=== PATIENT | female | born 1940 | race Caucasian/White ===

== ENCOUNTER 2021-04-18 08:20 | Observation (INO) ==
--- NOTE | 2020-11-17 14:02 | PAT Medication Instructions ---
Medication Instructions Date of Service November 17, 2020 Home Medications acetaminophen 500 mg tablet 500 mg PO Q6H PRN alprazolam 0.25 mg tablet 0.25 mg PO TID PRN meclizine 25 mg tablet 25 mg PO Q6H PRN olmesartan 20 mg tablet 20 mg PO HS omeprazole 20 mg capsule,delayed release 20 mg PO BID paroxetine HCl 40 mg tablet 40 mg PO HS simvastatin 20 mg tablet 20 mg PO HS vitamins A,C,N-yeyi-fymwxk 14,320 unit-226 mg-200 unit capsule (PreserVision AREDS) 1 cap PO BID STOP taking 2 weeks before surgery vitamins A,C,P-lzbn-vlznpy 14,320 unit-226 mg-200 unit capsule (PreserVision AREDS) 1 cap PO BID Take morning of surgery With a small sip of water, OTHERWISE NOTHING TO EAT OR DRINK AFTER MIDNIGHT: acetaminophen 500 mg tablet 500 mg PO Q6H PRN (okay to take up to 4 hours prior to surgery if needed) alprazolam 0.25 mg tablet 0.25 mg PO TID PRN (if needed) meclizine 25 mg tablet 25 mg PO Q6H PRN (if needed) omeprazole 20 mg capsule,delayed release 20 mg PO BID Take evening before surgery acetaminophen 500 mg tablet 500 mg PO Q6H PRN (if needed) alprazolam 0.25 mg tablet 0.25 mg PO TID PRN (if needed) meclizine 25 mg tablet 25 mg PO Q6H PRN (if needed) olmesartan 20 mg tablet 20 mg PO HS omeprazole 20 mg capsule,delayed release 20 mg PO BID paroxetine HCl 40 mg tablet 40 mg PO HS simvastatin 20 mg tablet 20 mg PO HS Other Notes If you have any questions please call us at [phone] or [phone] or [phone] or [phone]
--- NOTE | 2020-11-23 15:56 | Anesthesiology Consultation ---
Date of Service November 23, 2020 Assessment & Plan (1) Encounter for pre-operative examination: Chart Review Chart Review: Acceptable Risk for Surgery (pending surgeon ordered PCP clearance, pulm note if available and preop Covid testing results ) and Patient seen in Pre Admission Testing - Awaiting surgeon ordered PCP clearance - Per patient's daughter- patient also seeing pulm prior to surgery- will attempt to get office note Per PAT appt on 11/23/20, patient denies any recent travel or large group activities. No known Covid positive contacts or Covid related symptoms. No known Covid infection in the past 90 days. Pt vaccinated for surgery. Preop Covid testing scheduled 12/16/20= will await results. Educated on importance of self quarantining, social distancing and wearing mask in public for the patient one week prior to surgery and after Covid testing done Teaching & Discussion Pre-Anesthesia Teaching/Discussion Notes: Instructed NPO after midnight before surgery,except medications with 15 cc of water. Medication instructions provided according to the PAT guidelines. History Surgery Operation Date: 12/20/20 07:00 Proposed Procedures p Left Total Knee Arthroplasty - Jason Kong MD Height/Weight Height: 5 ft 1 in Weight: 79.9 kg Allergies Allergy/AdvReac Type Severity Reaction Status Date / Time diazepam [From Valium] AdvReac Intermediate Confusion Verified 11/23/20 16:09 Medications Home Medications Medication Instructions Recorded Confirmed Last Taken acetaminophen 500 mg tablet 500 mg PO Q6H PRN 11/17/20 11/17/20 Unknown alprazolam 0.25 mg tablet 0.25 mg PO TID PRN 11/17/20 11/17/20 Unknown meclizine 25 mg tablet 25 mg PO Q6H PRN 11/17/20 11/17/20 Unknown olmesartan 20 mg tablet 20 mg PO HS 11/17/20 11/17/20 Unknown omeprazole 20 mg capsule,delayed 20 mg PO BID 11/17/20 11/17/20 Unknown release paroxetine HCl 40 mg tablet 40 mg PO HS 11/17/20 11/17/20 Unknown simvastatin 20 mg tablet 20 mg PO HS 11/17/20 11/17/20 Unknown vitamins A,C,V-byxa-hhmcnh 14,320 1 cap PO BID 11/17/20 11/17/20 Unknown unit-226 mg-200 unit capsule (PreserVision AREDS) Past Medical History Medical History (Updated 11/23/20 @ 16:43 by Carrie Wright PA-C) Anxiety Depression Dysphagia Occ with certain food - rice and hamburger Hx of esophageal dilation - secondary to stricture vs schatzki ring GERD (gastroesophageal reflux disease) Well controlled and stable with medication Hiatal hernia Hyperlipidemia Hypertension SOB (shortness of breath) on exertion Family feels deconditioned - PCP will be scheduling patient with [employer]orer stores Stress bladder incontinence, female Exercise / Class Metabolic Activity III < 4 Walking/Shop/Light housework (one flight of stairs - no chest pain, mild SOB ) Past Family History Family History Son Family history of diabetes mellitus Brother Family hx of colon cancer Brother Family hx of colon cancer Sister Family hx of colon cancer Past Surgical History Surgical History H/O bilateral oophorectomy WITH REMOVAL ADHESIONS History of arthroscopy LEFT KNEE History of cataract surgery R/L History of colonoscopy History of esophagogastroduodenoscopy (EGD) MULTIPLE History of hysterectomy Past Anesthesia History No Hx of Anesthesia Complications (with exception to slow to wake - groggy- no reintubation or ICU stay ) and No Family Hx of Anesthesia Complications History of PONV No Hx of PONV, No Hx of Motion Sickness and Other (One episode of vertigo with ovarian cystectomy/adhesion removal surgery- 2016- prolonged surgery ) Social History Smoking Status: Never smoker Do You Dip or Chew Tobacco: No Hx Alcohol Use: No Hx Substance Use: No Review of Systems Hx of snoring - hx of sleep study 20-25 years ago- no TRUNG - no recent sleep studies Patient denies chest pain, shortness of breath at rest, cough, wheezing, palpitations. No hx of seizures, stroke, NV. No hx of blood clots or blood transfusions Physical Exam Vital Signs VITALS BP 125/83 P 89 TEMP 98.0 SP02 96% RESP 16 Constitutional no acute distress ENMT Mouth: no TMJ clicking Thyromental Distance: > or= 3.5 Finger Breadths Mallampati Class: II Neck neck extension not limited Respiratory normal respiratory effort; no respiratory distress Auscultation: lungs clear to auscultation bilaterally; no crackles, no rales, no rhonchi and no wheezes Cardiovascular Rate/Rhythm: regular rate and regular rhythm Heart Sounds: no murmur Vessels: no carotid bruit Musculoskeletal Spine: no pain with cervical ROM Extremities: extremities normal to inspection Psychiatric Orientation: alert Lab Results Anesthesia Preop Results Results Anesthesia Widget: WBC 10.46 K/uL (4.8-10.8) 11/23/20 Hgb 13.8 g/dL (12.0-16.0) 11/23/20 Hct 43.0 % (37-47) 11/23/20 Plt 289 K/uL (130-400) 11/23/20 Na 142 mmol/L (136-145) 11/23/20 K 4.3 mmol/L (3.5-5.1) 11/23/20 Cl 107 mmol/L (98-107) 11/23/20 CO2 29 mmol/L (21-32) 11/23/20 BUN 20 mg/dl (7-18) H 11/23/20 Creat 1.09 mg/dl (0.6-1.2) 11/23/20 Glucose Level 83 mg/dl (70-99) 11/23/20 PT 10.3 Seconds (9.0-12.0) 11/23/20 PTT 25.9 Seconds (21.0-31.0) 11/23/20 INR 1.0 (0.9-1.1) 11/23/20 Blood Type A Positive 11/23/20 Antibody Screen NEGATIVE 11/23/20 Testing Electrocardiogram Date: 11/23/20 Findings: + NSR @ (82bpm) Nonspecific ST abnormality Chest X-Ray Date: 11/23/20 Findings: + NAD The heart is top normal for projection noting atherosclerotic calcification of the thoracic aorta. There is elevation of the right hemidiaphragm with bibasilar scarring/atelectasis. No airspace consolidation or pleural effusion is identified. There is no pneumothorax.
--- NOTE | 2021-03-21 11:22 | PAT Medication Instructions ---
Medication Instructions Date of Service March 21, 2021 Home Medications acetaminophen 500 mg tablet 500 mg PO Q6H PRN alprazolam 0.25 mg tablet 0.25 mg PO TID PRN meclizine 25 mg tablet 25 mg PO Q6H PRN olmesartan 20 mg tablet 20 mg PO HS omeprazole 20 mg capsule,delayed release 20 mg PO BID paroxetine HCl 40 mg tablet 40 mg PO HS simvastatin 20 mg tablet 20 mg PO HS vitamins A,C,N-ezrq-slhrre 14,320 unit-226 mg-200 unit capsule (PreserVision AREDS) 1 cap PO BID STOP taking 2 weeks before surgery vitamins A,C,E-apho-xxnlbw 14,320 unit-226 mg-200 unit capsule (PreserVision AREDS) 1 cap PO BID Take morning of surgery With a small sip of water, OTHERWISE NOTHING TO EAT OR DRINK AFTER MIDNIGHT: acetaminophen 500 mg tablet 500 mg PO Q6H PRN (okay to take up to 4 hours prior to surgery if needed) alprazolam 0.25 mg tablet 0.25 mg PO TID PRN (if needed) meclizine 25 mg tablet 25 mg PO Q6H PRN (if needed) omeprazole 20 mg capsule,delayed release 20 mg PO BID Take evening before surgery acetaminophen 500 mg tablet 500 mg PO Q6H PRN (if needed) alprazolam 0.25 mg tablet 0.25 mg PO TID PRN (if needed) meclizine 25 mg tablet 25 mg PO Q6H PRN (if needed) olmesartan 20 mg tablet 20 mg PO HS omeprazole 20 mg capsule,delayed release 20 mg PO BID paroxetine HCl 40 mg tablet 40 mg PO HS simvastatin 20 mg tablet 20 mg PO HS Other Notes If you have any questions please call us at [phone] or [phone] or [phone] or [phone]
--- NOTE | 2021-04-11 13:49 | Anesthesiology Consultation ---
Date of Service April 11, 2021 Assessment & Plan (1) Encounter for pre-operative examination: Chart Review Chart Review: Acceptable Risk for Surgery (pending preop Covid testing results ) and Patient NOT seen in Pre Admission Testing Pt seen in [facility] in 10/2020- rescheduled multiple times secondary to Covid surge- patient current scheduled 04/18/21 -Due to age and ROSALES- patient is NOT an acceptable [facility] candidate Per nursing assessment 03/17/2021, patient denies any recent travel. Wears mask in public. No known Covid infection in the past 90 days. Patient is fully vaccinated for Covid. No known Covid positive exposures or Covid related symptoms. Pt will need preop Covid testing 2-4 days prior to surgery= will await results Seen by pulmonology 12/27/20=patient presents for follow-up of hypoxemia. Patient has had swallowing study, PFTs, 6-minute walk test (reports scanned to chart). Patient did desat to 89% with activity on pulse oximetry.Patient's work-up revealed no underlying issues. Does have hiatal hernia and elevated hemidiaphragm.Will await sniff test results. "Patient has surgery scheduled 01/03/2021ulmonary feels she is fine. Oxygenation has improved. Cough is likely combination of things including postnasal drip, hiatal hernia, and some swallowing issues. She does have a Schatzki ring and needs to follow-up with GI. Follow-up in 1 month. Patient seen by PCP 12/05/2020= seen for preop evaluation prior to knee replacement. Patient with recent cough and SOB especially after eatingscheduled to see pulmonary prior to surgery. " To see pulmonary preop. Otherwise medically stable." PCP feels patient would do better with 2-week postop rehab stay. History Surgery Operation Date: 01/24/21 09:20 Proposed Procedures p Left Total Knee Arthroplasty - Jason Kong MD Operation Date: 04/04/21 07:00 Proposed Procedures p Left Total Knee Arthroplasty - Jason Kong MD Operation Date: 04/18/21 10:10 Proposed Procedures p Left Total Knee Arthroplasty - Jason Kong MD Height/Weight Height: 5 ft 1 in Weight: 77.111 kg Allergies Allergy/AdvReac Type Severity Reaction Status Date / Time diazepam [From Valium] AdvReac Intermediate Confusion Verified 03/17/21 10:55 Sulfa (Sulfonamide AdvReac Mild Hives Verified 03/17/21 10:55 Antibiotics) Medications Home Medications Medication Instructions Recorded Confirmed Last Taken acetaminophen 500 mg tablet 500 mg PO Q6H PRN 11/17/20 03/17/21 Unknown alprazolam 0.25 mg tablet 0.25 mg PO TID PRN 11/17/20 03/17/21 Unknown meclizine 25 mg tablet 25 mg PO Q6H PRN 11/17/20 03/17/21 Unknown olmesartan 20 mg tablet 20 mg PO HS 11/17/20 03/17/21 Unknown omeprazole 20 mg capsule,delayed 20 mg PO BID 11/17/20 03/17/21 Unknown release paroxetine HCl 40 mg tablet 40 mg PO HS 11/17/20 03/17/21 Unknown simvastatin 20 mg tablet 20 mg PO HS 11/17/20 03/17/21 Unknown vitamins A,C,B-ezpf-bgmpdk 14,320 1 cap PO BID 11/17/20 03/17/21 Unknown unit-226 mg-200 unit capsule (PreserVision AREDS) Past Medical History Medical History Anxiety Depression Dysphagia Occ with certain food - rice and hamburger Hx of esophageal dilation - secondary to stricture vs schatzki ring GERD (gastroesophageal reflux disease) Well controlled and stable with medication Hiatal hernia Hyperlipidemia Hypertension SOB (shortness of breath) on exertion Pulm office visit 12/2020 scanned Stress bladder incontinence, female Past Family History Family History Son Family history of diabetes mellitus Brother Family hx of colon cancer Brother Family hx of colon cancer Sister Family hx of colon cancer Past Surgical History Surgical History H/O bilateral oophorectomy WITH REMOVAL ADHESIONS History of anesthesia reaction SLOW TO WAKE UP History of arthroscopy LEFT KNEE History of back surgery NO HARDWARE History of cataract surgery R/L History of colonoscopy History of esophagogastroduodenoscopy (EGD) MULTIPLE History of hysterectomy Social History Smoking Status: Never smoker Do You Dip or Chew Tobacco: No Hx Alcohol Use: No Hx Substance Use: No Lab Results Anesthesia Preop Results Results Anesthesia Widget: WBC 8.92 K/uL (4.8-10.8) 03/27/21 Hgb 13.9 g/dL (12.0-16.0) 03/27/21 Hct 44.4 % (37-47) 03/27/21 Plt 285 K/uL (130-400) 03/27/21 Na 140 mmol/L (136-145) 03/27/21 K 4.1 mmol/L (3.5-5.1) 03/27/21 Cl 107 mmol/L (98-107) 03/27/21 CO2 28 mmol/L (21-32) 03/27/21 BUN 26 mg/dl (6-23) H 03/27/21 Creat 1.03 mg/dl (0.6-1.2) 03/27/21 Glucose Level 86 mg/dl (70-99(Fasting)) 03/27/21 PT 10.1 Seconds (9.0-12.0) 03/27/21 PTT 26.8 Seconds (21.0-31.0) 03/27/21 INR 1.0 (0.9-1.1) 03/27/21 Blood Type A Positive 03/27/21 Antibody Screen NEGATIVE 03/27/21 Testing Laboratory Results 02/28/21= UA: negative Electrocardiogram Date: 11/23/20 Findings: + NSR @ (82bpm) Nonspecific ST abnormality Chest X-Ray Date: 11/23/20 Findings: + NAD The heart is top normal for projection noting atherosclerotic calcification of the thoracic aorta. There is elevation of the right hemidiaphragm with bibasilar scarring/atelectasis. No airspace consolidation or pleural effusion is identified. There is no pneumothorax. Other Testing X-ray sniff test chest frontal and lateral views 12/30/2020 = both sides of diaphragm moved together with breathing, but the excursion of the right hemidiaphragm is mildly decreased compared to the left. CT scan of chest 12/27/20= pleural thickening along the posterior medial right lower lobe with small patchy consolidations in the lingula. The distribution of findings may suggest sequelae of aspiration given the patient has a moderate sized hiatal hernia with proximal esophageal wall thickening. Swallowing study 12/21/2020 =mild oropharyngeal dysphagia.
[~2021-04-18 08:20] MED LIST: ACETAMINOPHEN 500 MG TAB PO SCH; CHECK CLONIDINE PATCH PLACEMENT SCH; CeleBREX 200 MG CAP PO SCH; FAMOTIDINE 20 MG TAB PO SCH; GABAPENTIN 300 MG CAP PO SCH; LR 500ML BOLUS, THEN 15ML/HR IV SCH; LR 60ML/HR IV SCH; METOCLOPRAMIDE HCL 10 MG TABLET PO SCH; ROPIVACAINE 0.5% HCL/PF 150 MG, BUPIVACAINE 0.75% MPF 20 ML, EPINEPHrine 0.15 MG, Ketor... INFIL SCH; TRANEXAMIC ACID 1,000 MG **IV Intra-op IV SCH; TRANEXAMIC ACID 1,000 MG **IV Pre-op IV SCH; ceFAZolin 2000MG 2,000 MG/15 ML SYR IV SCH; cloNIDine HCL 0.1 MG/24 HR TRANSDERM SYS TD SCH; dexAMETHasone 4 MG TAB PO SCH; oxyCODONE HCL 10 MG TABCR (OxyCONTIN) PO SCH; traMADol HCL 50 MG TABLET PO SCH
[2021-04-18] MEDS ORDERED: EPINEPHrine INJ 1 MG/ML AMP IV ONE (08:21)
[2021-04-18] MEDS ORDERED: BUPIVACAINE 0.5 % 5 MG/1 ML PF 10ML VIAL IM ONE (08:21)
[2021-04-18] MEDS ORDERED: BUPIVACAINE 0.25% 30 ML VIAL INFIL ONE (08:21)
[2021-04-18] MEDS ORDERED: MIDAZOLAM HCL 1 MG/ML 2ML VIAL IV ONE (08:21)
[2021-04-18] MEDS ORDERED: DEXAMETHASONE SOD INJ 4 MG/ML VIAL IV ONE (08:21)
--- NOTE | 2021-04-18 09:59 | History & Physical Bridge Note ---
Date of Service April 18, 2021 History & Physical Bridge Note I have examined the patient, reviewed the History & Physical and in the interval since the performance of the History & Physical I have noted the following changes of clinical significance: no changes noted
[2021-04-18] MEDS ORDERED: ORTHO JOINT ANESTHETIC ONE (10:13)
[2021-04-18] MEDS ORDERED: PROPOFOL IV EMULSION 10 MG/ML 20 ML VIAL IV ONE (10:53)
[2021-04-18] MEDS ORDERED: PHENYLEPHRINE 100MCG/ML 5ML SYR ONE (11:15)
[2021-04-18] MEDS ORDERED: PHENYLEPHRINE HCL 10 MG/ML VIAL ONE (11:50)
[2021-04-18] MEDS ORDERED: ONDANSETRON INJ 2 MG/ML 2 ML VIAL IV PRN ×2 (12:47→16:16)
[2021-04-18] MEDS ORDERED: ePHEDrine sulfate 50 MG/ML AMP IV PRN (12:47)
[2021-04-18] MEDS ORDERED: fentaNYL citrate 100 MCG/2 ML VIAL IV PRN (12:47)
[2021-04-18] MEDS ORDERED: ATROPINE SULFATE 0.1 MG/ML 10ML SYR IV PRN (12:47)
--- NOTE | 2021-04-18 13:45 | Operative Report ---
Post Operative Report Pre & Post Diagnosis Operation Date: 01/24/21 09:20 <No data on this case meets the specified criteria> Operation Date: 04/04/21 07:00 <No data on this case meets the specified criteria> Operation Date: 04/18/21 10:10 Pre-Op Diagnosis: End stage osteoarthritis, left knee. Post-Op Diagnosis: End stage osteoarthritis, left knee. I identified the patient and participated in the time-out.: Yes Procedure Operation Date: 01/24/21 09:20 <No data on this case meets the specified criteria> Operation Date: 04/04/21 07:00 <No data on this case meets the specified criteria> Operation Date: 04/18/21 10:10 Actual Procedures p Left Total Knee Arthroplasty(Left) - Jason Kong MD Surgeon Jason Kong M.D. Graduate Fellow Rosalinda Galvez PA-C; no fellow or resident available Estimated Blood Loss 20 Findings Consistent with Post-Op Diagnosis Specimens bone and soft tissue Anesthesia Type MAC Spinal Regional Description of Procedure Patient was taken to the operating room, placed under spinal anesthesia, given peripheral nerve block. Time out performed, prepped and draped in routine sterile fashion. I was present during the entire case, as assisted with tissue retraction, bone resection, implantation of hardware, cementing, closure and dressings. Please see Dr. Kong's operative report for further detail. I attest to the content of the Intraoperative Record and any orders documented therein. Any exceptions are noted below.
--- NOTE | 2021-04-18 13:57 | Operative Report ---
Post Operative Report Pre & Post Diagnosis Operation Date: 01/24/21 09:20 <No data on this case meets the specified criteria> Operation Date: 04/04/21 07:00 <No data on this case meets the specified criteria> Operation Date: 04/18/21 10:10 Pre-Op Diagnosis: End stage osteoarthritis, left knee. Post-Op Diagnosis: End stage osteoarthritis, left knee. I identified the patient and participated in the time-out.: Yes Procedure Operation Date: 01/24/21 09:20 <No data on this case meets the specified criteria> Operation Date: 04/04/21 07:00 <No data on this case meets the specified criteria> Operation Date: 04/18/21 10:10 Actual Procedures p Left Total Knee Arthroplasty(Left) - Jason Kong MD Surgeon Jason Kong MD Sheet Metal Lay Out Worker Rosalinda Galvez PA-C; no fellow or resident available Estimated Blood Loss 20 Findings Consistent with Post-Op Diagnosis Specimens Bone and soft tissue Anesthesia Type MAC Spinal Regional Complications none Disposition Accompanied Patient To Recovery: No Disposition: Recovery Room Indications Apolinar is 80. She has severe arthritis lateral compartment left knee refractory to nonsurgical methods of management and she is elected to proceed with operative intervention. Description of Procedure Informed consent obtained. Patient identified. She identified the operative site as the left knee. I marked with my initials. A preoperative surgical timeout was performed. A preop dose of IV antibiotics was given. She was taken to the operating room positioned supine on the OR table. A tourniquet applied to the left thigh. A padded post under the left calf. Leg was prescrubbed prepped and draped in usual sterile fashion. DVT prophylaxis intraoperatively with mechanical device. Postoperatively mechanical devices early mobility and Lovenox. The exam under anesthesia revealed a little more than 1+ LCL laxity in mid position. Valgus alignment knee stable in full extension range of motion 0- 1 20. Limb exsanguinated with the Esmarch. Tourniquet inflated to 275 mmHg. Later during cementing the tourniquet was let down and the limb was reexsanguinated and the tourniquet inflated to 300 mmHg. The tourniquet was let down at the conclusion the operation after 110 minutes of inflation. I made a midline longitudinal incision about 20 cm in length followed by medial parapatellar arthrotomy. 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 Soft tissue in the lateral gutter was released. There was scarring in the knee from what was likely prior surgery. The suprapatellar fat pad was resected. The infrapatellar fat pad was resected. Minimal medial release was performed and the patella was everted and the knee was subluxated. There were grade 4 changes with some central wear bipolar lateral compartment. Lateral meniscus was deficient. Cruciates intact and they were resected. Marginal osteophytes throughout the knee particularly laterally were removed. The tibia was subluxated and a airline pilot hole was drilled just in front of and between the tibial spines. Intramedullary alignment tyson was inserted followed by application of the 0degree cutting block. This was aligned to the tibial tubercle and pinned into place. The leg was held in extension with the extra medullary alignment tyson which confirmed good slope and coronal plane alignment. This cut was then made. The initial cut was made at a 6 mm thick off of the medial side which corresponded to about a 4 mm resection laterally. Later when balancing due to tight extension gap I had to go ahead and recut an additional 2 mm off of the tibia. This resulted in a symmetric 10 mm extension gap. The tibia was sized to a 1.5. The only trial that was available was a 1 or a 2. There is no 1 implant. We do have a 1.5 implant. Attention was turned to the femur. A airline pilot hole was drilled into the distal femur. This was followed by insertion of the distal femoral cutting guide set to resect 12 mm of bone at a 5 degree valgus angle. The cut was made and the extension gap initially was tight but after recutting we had a symmetric 10 mm gap. The epicondylar axis was marked out. Care was taken to note that there was some lateral posterior condylar hypoplasia. The external rotation drill holes were made and matched this. The femur was sized to 1.5. This was done with a distal femoral sizing block. The cutting block was applied and the collateral ligaments were protected and the cuts were made. The flexion gap was a symmetric 10. The box cutting guide was applied lateralized and the cut was made. Posterior osteophytes were removed. Attention was turned to the patella where it was measured to be 20 mm in thickness. A 32 mm 3 peg patella was selected. This was set to preserve 14 mm of bone. The cut was made and the residual patellar thickness was 12 mm. At the conclusion of the operation the composite patellar thickness was 20 mm. [place] assisted flexion with extensor mechanism closed with 110 degrees. Patellar tracking was fine with no hands technique once the tourniquet was let down. The trial components removed from the knee and the bony surfaces were meticulously prepared with pulsatile lavage and dried. The canals were plugged and the Ortho joint mix was injected in the back the knee and while the cement was hardening the remainder the joint mix was injected throughout the knee. The components were cemented in place femur tibia patella and the knee was held in full extension until the cement hardened the tourniquet was let down. 2 bags of Simplex P cement were mixed and while in a doughy state cementation occurred. The posterior condyles had smears of cement placed on them. The laxity profile is excellent. Full extension stable at 0 degrees. Trace LCL laxity at 30 and trace MCL and LCL laxity at 90. The back the knee was inspected for cement irrigation was performed and the final polyethylene implant was inserted. The extensor mechanism was closed above the equator the patella with interrupted #2 FiberWire and below the equator the patella with running and interrupted #1 Vicryl. The skin was closed in layers with 0 and 2-0 Vicryl for the large adipose layer. The skin was closed with gwen a soft roll dressing was applied Xeroform 4 x 4's ABD full-length Scott wrap and knee brace. The plan is to apply a wound VAC tomorrow. She was awakened from anesthesia without difficulty taken to the recovery room in stable condition the resected bone was sent for specimen there were no complications counts were correct and blood loss is estimated to be 20 cc. At the conclusion the operation spoke to her daughter informed her of my findings and postop instructions were given. Routine total knee rehab. Lovenox for DVT prophylaxis. Components inserted with a [employer] PFC Sigma rotating platform knee size 1.5 left posterior stabilized femur a 1.5 keeled mobile-bearing tibial tray and a 32 mm 3 peg oval dome patella and a size 1.510 mm thick polyethylene insert. I attest to the content of the Intraoperative Record and any orders documented therein. Any exceptions are noted below.
[2021-04-18] MEDS ORDERED: hydrALAZINE HCL 20 MG/ML VIAL IV PRN (13:59)
--- NOTE | 2021-04-18 14:56 | XRay Report ---
LEFT KNEE 2 VIEWS History: Left total knee arthroplasty. Degenerative arthritis. Postop. FINDINGS: The patient is status post a left total knee arthroplasty. The hardware is intact. No fract ure or dislocation. Skin gwen are in place. IMPRESSION: Left total knee arthroplasty. No evidence for hardware complication. ACT 112: Negative or not required by law. Electronically signed by: Darrell Herbert M.D. 04/18/2021 2:55 PM
[2021-04-18] MEDS: SODIUM CHLORIDE 0.9% 1000ML 1,000 ML IV SCH (16:05)
[2021-04-18] MEDS ORDERED: HYDROmorphone INJ 0.5 MG/0.5 ML SYR IV PRN (16:16)
[2021-04-18] MEDS ORDERED: NALOXONE HCL 0.4 MG/1 ML VIAL/CARP IV PRN (16:16)
[2021-04-18] MEDS ORDERED: oxyCODONE HCL IR 5 MG TAB (IMMEDIATE RELEASE) PO PRN (16:16)
[2021-04-18] MEDS ORDERED: traMADol HCL 50 MG TABLET PO PRN (16:16)
[2021-04-18] MEDS ORDERED: diphenhydrAMINE 50 MG/ML VIAL IV PRN (16:16)
[2021-04-18] MEDS ORDERED: METOCLOPRAMIDE HCL INJ 5 MG/ML 2 ML VIAL IV PRN (16:16)
[2021-04-18] MEDS ORDERED: bisacodyL 10 MG SUPP PR PRN (16:16)
[2021-04-18] MEDS ORDERED: ALPRAZolam 0.25 MG TABLET PO PRN (16:16)
[2021-04-18] MEDS ORDERED: MAGNESIUM HYDROXIDE SUSP 30 ML UDC PO PRN (16:16)
[2021-04-18] MEDS ORDERED: MECLIZINE HCL 25 MG TAB PO PRN (16:26)
[2021-04-18] MEDS: CHECK CLONIDINE PATCH PLACEMENT SCH ×2 (17:00→17:21)
[2021-04-18] MEDS: ACETAMINOPHEN 500 MG TAB PO SCH ×2 (17:06→23:34)
[2021-04-18] MEDS: KETOROLAC TROMETHAMINE 15 MG/ML VIAL IV SCH ×2 (17:06→23:35)
[2021-04-18] MEDS: ceFAZolin 2000MG 2,000 MG/15 ML SYR IV SCH (18:38)
--- NOTE | 2021-04-18 19:47 | Progress Notes ---
DATE OF SERVICE: 04/18/2021 Resting comfortably in bed. Status post total knee replacement. No problems are reported. She is a febrile. Her vital signs are stable. She has a 1+ posterior tibial pulse. Her foot is warm. Sensa tion is intact throughout. She has 5-/5 ankle and toe plantar flexion, dorsiflexion, inversion and e version strength. Her x-rays show good positioning of the components without complication. Report n oted. We will continue routine postoperative care status post total knee replacement. Surgical find ings were discussed. Job ID: [id number]
[2021-04-18] MEDS: PANTOprazole 40 MG TAB PO SCH (20:27)
[2021-04-18] MEDS: DOCUSATE SODIUM 100 MG CAP PO SCH (20:28)
[2021-04-18] MEDS ORDERED: SENNA 8.6 MG TAB PO SCH (21:00)
[2021-04-18] MEDS ORDERED: PARoxetine HCL 20 MG TAB PO SCH (21:00)
[2021-04-18] MEDS ORDERED: OLMESARTAN MEDOXOMIL 20 MG TAB PO SCH (21:00)
[2021-04-18] MEDS ORDERED: SIMVASTATIN 20 MG TAB PO SCH (21:00)
[2021-04-19] MEDS: SODIUM CHLORIDE 0.9% 1000ML 1,000 ML IV SCH (03:47)
[2021-04-19] MEDS: ceFAZolin 2000MG 2,000 MG/15 ML SYR IV SCH (04:13)
[2021-04-19] MEDS: ACETAMINOPHEN 500 MG TAB PO SCH ×2 (05:20→13:50)
[2021-04-19] MEDS: KETOROLAC TROMETHAMINE 15 MG/ML VIAL IV SCH ×2 (05:21→11:40)
[2021-04-19] MEDS ORDERED: dexAMETHasone 4 MG TAB PO SCH (08:00)
[2021-04-19] MEDS ORDERED: ENOXAPARIN INJ 30 MG/0.3 ML SYR SQ SCH (08:00)
[2021-04-19 08:14] LABS: Hematocrit (blood only) 41.2 % (37-47); Hemoglobin 13.3 g/dL (12.0-16.0); Mean Corpuscular Hemoglobin 29.4 pg (25-34); Mean Corpuscular Hgb Conc 32.3 g/dL (32-36); Mean Corpuscular Volume 91.2 fL (80-100); Mean Platelet Volume 9.3 fL (7.4-10.4); Platelet Count 265 K/uL (130-400); RDW Coefficient of Variation 14.3 % (11.5-14.5); RDW Standard Deviation 47.9 fL (36.4-46.3); Red Blood Count 4.52 M/uL (4.2-5.4); White Blood Count 16.43 K/uL (4.8-10.8)
[2021-04-19 08:40] LABS: BUN Creatinine Ratio 19.3 (10-20); Calcium 9.4 mg/dl (8.5-10.1); Creatinine Clr Calc Pharmacy 35.7 ml/min; Est GFR (African American) 49.6 ml/min; Est GFR (Non-African American) 42.8 ml/min
[2021-04-19] MEDS: PANTOprazole 40 MG TAB PO SCH (08:59)
[2021-04-19] MEDS: DOCUSATE SODIUM 100 MG CAP PO SCH (08:59)
[2021-04-19] MEDS ORDERED: MULTIVITAMIN TAB PO SCH (09:00)
--- NOTE | 2021-04-19 09:04 | Progress Notes ---
DATE OF SERVICE: 04/19/2021. Postoperative day #1, status post left total knee arthroplasty. She reports that she has been shakin g this morning. She states that this can happen with narcotics and she has received some in the alvaro operative period. She is not having any difficulty breathing or chest pains. Her knee pain is well controlled. She is afebrile. Her vital signs are stable. Blood pressure is a little bit high. Her white count today is 16, hemoglobin 13, hematocrit 41, platelets are 265. Her PRP is pending. I reviewed with er radiographs of the knee. Components in place. No evidence of complication. She has 1+ posterior tibial pulse. She has 5-/5 ankle and toe plantar flexion, dorsiflexion, inversi on and eversion strength. Her sensation is intact. Her dressing is removed. There is some minor br uising around the wound. No active drainage. No substantial swelling or hematoma formation. A Prev lukas incisional wound VAC is applied and she was placed back into her knee immobilizer. Her calf is s oft and supple. Postoperative day #1, status post left total knee arthroplasty. PLAN: Lovenox for DVT prophylaxis. PT and OT. When able plan is to transfer her to [facility]. We t alked to her about some do's and don'ts and the perioperative plan. She again expresses reluctance a bout going to [facility] and being away from her family and away from home and that she would rather g o home. This was part of the overall plan that we agreed to before surgery due to her age, health hi story and overall situation that it is best and safest for her recovery to go to [facility] and then when she has completed the rehabilitation program there whether it is 3 days or 14 days, whatev er it might be that she would then be able to go hopefully back home in a safe fashion. Job ID: [id number]
--- NOTE | 2021-04-19 09:45 | Discharge Summary ---
Date of Service April 19, 2021 Discharge Data Procedures Performed Operation Date: 01/24/21 09:20 <No data on this case meets the specified criteria> Operation Date: 04/04/21 07:00 <No data on this case meets the specified criteria> Operation Date: 04/18/21 10:10 Actual Procedures p Left Total Knee Arthroplasty(Left) - Jason Kong MD Hospital Course (1) Left knee DJD: Patient was admitted to [facility] after undergoing an elective left total knee arthroplasty by Dr. Kong on April 18, 2021. Her surgery was performed with spinal anesthesia, peripheral nerve block and IV sedation. She tolerated the procedure well without any intraoperative complications. She was given 1 g of IV Ancef for surgical prophylaxis which was continued for 24 hours postoperatively. She was also given 1 g of tranexamic acid preoperatively and postoperatively for bleeding control. In the recovery room x-rays of her left knee was obtained and Was found to be in good alignment and as expected for postoperative changes. She was given Tylenol, oxycodone, tramadol, Toradol, Dilaudid for postoperative pain management. She was placed on a bowel regimen to prevent constipation. She was allowed out of bed, weight- bear as tolerated left lower extremity with the assistance of a walker and a knee immobilizer on her left knee for at least 24 hours until she regains good quad control. She was given a regular diet and tolerated well during her inpatient stay. She did not develop any postoperative nausea or vomiting. Her vitals remained stable during her stay. She had blood work done on postoperative day 1 which was normal and no need for blood transfusions postoperatively. She noticed some increase in shakiness and nervousness. She was concerned about this. She has been taking her regularly scheduled Xanax. She states that sometimes the shakiness can occur with pain medication. She did have some of this perioperatively. Advised her to limit her pain medication and continue with Tylenol. Also recommended continuing her Xanax. Her home medications were continued. She was placed on Lovenox for DVT prophylaxis which will continue for 2 to 4 weeks after surgery. She was placed on 30 mg twice daily. Physical therapy and Occupational Therapy consults were placed. She did well in outpatient physical therapy but rehab was recommended. She was seen by case management and a referral for [facility] was made. She was deemed medically stable for discharge [facility]. All questions were answered and discharge instructions were provided.
== END 2021-04-19 17:14 ==
LOC: 3E 08:20 → ASU 08:20